=== PATIENT | male | born 1955 | race Caucasian/White ===

== ENCOUNTER → 2017-10-29 | Day surgery (SDC) | payer OTHER ==
[2017-10-22 16:24] VITALS: BMI 33.1
[~2017-10-29] MED LIST: CEFAZOLIN 2 GM/D5W 2 GM/50 ML ML IVPB ONE; oxyCODONE HCL 10 MG SUSTAINED ACTING TABLET ONE; oxyCODONE HCL 10 MG SUSTAINED ACTING TABLET PO STA
--- NOTE | 2017-10-29 07:13 | HP ---
History & Physical Update - History History: No Change - Physical Physical: No Change - Assessment Assessment: No Change - Plan Plan: No Change (Initial H&P located in patient's paper chart. No new complaints or medications. Elective ACDF C5-C7. (pain radiates down into RUE/ fingers))
[2017-10-29 10:54] VITALS: BP 131/91; PULSE 82; TEMP 97.8
== END | disposition home or self-care (01) ==
LOC: FASU 10:03
PROVIDERS: ATTEND Orthopaedic Surgery Orthopaedic Surgery of the Spine
PROC: 0RB30ZZ Excision of Cervical Vertebral Disc, Open Approach (ICD-10-PCS; principal; 2017-10-29)
PROC: 0RG10A0 Fusion of Cervical Vertebral Joint with Interbody Fusion Device, Anterior Approach, Anterior Column, Open Approach (ICD-10-PCS; 2017-10-29)
PROC: 0RG10K0 Fusion of Cervical Vertebral Joint with Nonautologous Tissue Substitute, Anterior Approach, Anterior Column, Open Approach (ICD-10-PCS; 2017-10-29)
DX: M48.02 Spinal stenosis, cervical region (principal); Z53.09 Procedure and treatment not carried out because of other contraindication
CPT/HCPCS: 82962

== ENCOUNTER 2018-06-21 11:17 | Day surgery (SDC) | payer OTHER ==
[2018-06-14 17:54] VITALS: BMI 37.0
[2018-06-21] MEDS: oxyCODONE HCL 10 MG SUSTAINED ACTING TABLET PO ONE ×2 (07:20→12:57)
--- NOTE | 2018-06-21 08:26 | HP ---
History & Physical Update - History History: No Change - Physical Physical: No Change - Assessment Assessment: No Change - Plan Plan: No Change
[~2018-06-21 11:17] MED LIST changes: +BUPIVACAINE HCL/PF (5 MG/ML) 30 ML VIAL IJ ONE; -CEFAZOLIN 2 GM/D5W 2 GM/50 ML ML IVPB ONE; +DEXTROSE 50%-WATER 25 GM/50 ML DISP.SYRIN ONE; +GELATIN SPONGE,ABSORBABLE 1 GM PACKET TP ONE; +LIDOCAINE 1%/EPI 1:100000 (20 ML MULTI DOSE VIAL) IJ ONE; +LIDOCAINE 1%/EPI 1:100000 (20 ML MULTI DOSE VIAL) ONE; +MIDAZOLAM HCL 2 MG/2 ML SINGLE DOSE VIAL ONE; +ONDANSETRON 4 MG/2 ML VIAL IVPUSH PRN; +PROPOFOL 20 ML ONE; +ROCURONIUM BROMIDE 50 MG/5 ML VIAL ONE; +SUCCINYLCHOLINE CHLORIDE 200 MG/10 ML VIAL ONE; +THROMBIN (BOVINE) 5,000 UNIT VIAL TP ONE; +THROMBIN (RECOMBINANT) 5,000 UNIT VIAL TP ONE; +ePHEDrine SULFATE 50 MG/1 ML AMPULE ONE; +fentaNYL CITRATE 250 MCG/5 ML VIAL ONE; -oxyCODONE HCL 10 MG SUSTAINED ACTING TABLET ONE; -oxyCODONE HCL 10 MG SUSTAINED ACTING TABLET PO STA; +oxyCODONE HCL 5 MG TABLET PO PRN
--- NOTE | 2018-06-21 11:17 | OP ---
Operative Note - Note: Operative Date: 06/21/18 Pre-Operative Diagnosis: cervcial spondylolisthesis Operation: Anterior cervical discectomy and fusion of C5-C6 and C6-C7 with neuromonitoring and allograft Surgeon: Easton Vines Audio Visual Manager: Flakita Turner Anesthesiologist/ACCOUNTS RECEIVABLE COORDINATOR: Javier Miles Anesthesia: General Specimens Removed: C5-6 and C6-7 disc Estimated Blood Loss (mls): 20 Fluid Volume Replaced (mls): 1,100 Operative Report Dictated: Yes
[2018-06-21] MEDS ORDERED: ONDANSETRON 4 MG/2 ML VIAL IVPUSH PRN (11:22)
[2018-06-21] MEDS ORDERED: oxyCODONE HCL 5 MG TABLET PO PRN ×3 (11:22)
[2018-06-21] MEDS ORDERED: ACETAMINOPHEN 1000 MG/100 ML VIAL (NON FORMULARY) IVPB ONE ×2 (11:22→11:30)
[2018-06-21] MEDS ORDERED: PROMETHAZINE HCL 25 MG/1 ML VIAL IVPUSH PRN (11:22)
[2018-06-21] MEDS ORDERED: ACETAMINOPHEN 325 MG TABLET (FP) PO SCH (11:30)
[2018-06-21] MEDS ORDERED: SODIUM CHLORIDE 1,000 ML IV SCH (12:00)
--- NOTE | 2018-06-21 12:01 | SURG ---
Surgery Poiser Balance Note Poiser Balance: Flakita Turner PA-C Date of Service: 06/21/18 Diagnosis: cervcial spondylolisthesis Procedure: Anterior cervical discectomy and fusion of C5-C6 and C6-C7 with neuromonitoring and allograft I was present for the entirety of the operative procedure. For further detail, please refer to operative report. Visit type - Case Type Case Type: Scheduled - Emergency Emergency Visit: No - New patient This patient is new to me today: Yes Date on this admission: 06/21/18
[2018-06-21] MEDS ORDERED: oxyCODONE HCL 5 MG TABLET ONE (12:26)
[2018-06-21] MEDS ORDERED: oxyCODONE HCL 5 MG TABLET PO ONE (12:30)
[2018-06-21] MEDS ORDERED: diazePAM 2 MG TABLET ONE (12:55)
[2018-06-21] MEDS: diazePAM 2 MG TABLET PO SCH ×2 (12:58→20:42)
[2018-06-21] MEDS ORDERED: diazePAM 2 MG TABLET PO ONE (13:00)
[2018-06-21] MEDS: oxyCODONE HCL 5 MG TABLET PO PRN ×2 (15:03→20:42)
[2018-06-21] MEDS ORDERED: CEFAZOLIN 1 GM/D5W 1 GRAM/50 ML BAG IVPB SCH (16:00)
[2018-06-21] MEDS: INSULIN SLIDING SCALE (NOVOLOG) 1 VIAL SQ SCH ×2 (16:03→21:28)
[2018-06-21] MEDS: DEXAMETHASONE SOD PHOSPHATE 4 MG/1 ML VIAL IVPB SCH ×2 (16:09→21:21)
[2018-06-21] MEDS: CEFAZOLIN 1 GM/D5W 1 GRAM/50 ML BAG IVPB SCH (16:18)
[2018-06-21] MEDS: ACETAMINOPHEN 325 MG TABLET (FP) PO SCH (17:56)
--- NOTE | 2018-06-21 20:56 | OP ---
DATE OF OPERATION: 06/21/2018 PREOPERATIVE DIAGNOSIS: Cervical stenosis C5-6, C6-7. POSTOPERATIVE DIAGNOSIS: Cervical stenosis C5-6, C6-7. PROCEDURE PERFORMED: Anterior cervical diskectomy and fusion C5-6, anterior cervical diskectomy and fusion C6-7, placement of instrumentation C5-7. SURGEON: Easton Vines M.D. THERAPY SITE COORDINATOR: Shabana Rachel ESTIMATED BLOOD LOSS: 50 mL INTRAVENOUS FLUIDS: Per anesthesia. ANESTHESIA: Spinal/SCP block. COMPLICATIONS: There were none. DISPOSITION: Patient brought to the PACU in stable condition. INDICATION FOR SURGERY: The patient is a 62-year-old gentleman who has been suffering from pain from his neck down his arm for many years now subsequent to an accident. X-rays and MRI were completed, which noted that he has cervical stenosis at C5-6 and C6-7. He had gone through an exhaustive course of treatment for this which included medications, physical therapy, as well as injections. Unfortunately, the pain continued to persist in spite of all this. At this point, risks, benefits, and alternatives were discussed and the patient consented to surgery. OPERATIVE NOTE: Patient is brought to the operating room by anesthesia staff. After appropriate patient identification is performed, general anesthesia was given. SCP block was given. Patient was placed supine on the OR bed with his arms tucked in at the side. All areas of bony prominence were well padded at this time. A shoulder roll was placed underneath his neck to extend his neck to the point that he could tolerate in the preoperative holding area. A needle was placed onto his neck to marnie off the C5-6 level, and x-rays was taken to confirm this is correct. [place] were removed, and 10 mL of lidocaine with epinephrine was injected into his neck at this time. His neck was prepped and draped in a sterile manner. At this point timeout was completed. An incision was made on the left side of his neck. Dissection was carried down to the platysma. The platysma was cut in line of the skin incision. Next interval between the sternocleidomastoid muscle as well as strap muscles were developed. Next the interval between the carotid sheath as well as tracheal esophagus was developed. A needle was placed into the C5-6 disk. An x-ray was taken to confirm this was correct. The needle was removed, and the muscle elevated off. Retractor blades were placed, and a Tavarez pin was placed in the body of C5 and C7. A knife was used to incise the disk and the disk was distracted. At this point using a series of pituitaries, Kerrisons and curets, a diskectomy was completed to the C5-6 and C6-7 levels, and plates were decorticated. Cages was bone graft were placed in. A screw was placed into the body at C5, C6, and C7. Tavarez pins were removed. AP and lateral x-rays confirmed the instrumentation being in good position. Final tightening was performed. The platysma was closed with 2-0 Vicryl suture. Skin was closed with 3-0 Monocryl suture. Dermabond was applied. Steri-Strips were applied. Sterile dressing was applied. Patient was placed supine on OR bed, and brought to the PACU in stable condition. Tiffanie [id number] MTDD
[2018-06-21] MEDS: oxyCODONE HCL 10 MG SUSTAINED ACTING TABLET PO SCH (21:20)
[2018-06-21] MEDS ORDERED: ATORVASTATIN CA 20 MG TABLET (FP) PO SCH (22:00)
[2018-06-22] MEDS: ACETAMINOPHEN 325 MG TABLET (FP) PO SCH ×3 (00:04→12:00)
[2018-06-22] MEDS: CEFAZOLIN 1 GM/D5W 1 GRAM/50 ML BAG IVPB SCH (00:37)
[2018-06-22] MEDS: DEXAMETHASONE SOD PHOSPHATE 4 MG/1 ML VIAL IVPB SCH (03:03)
[2018-06-22 05:40] VITALS: BP 132/72; PULSE 77; TEMP 97.8
[2018-06-22] MEDS: diazePAM 2 MG TABLET PO SCH (06:00)
[2018-06-22] MEDS: INSULIN SLIDING SCALE (NOVOLOG) 1 VIAL SQ SCH ×2 (06:44→12:00)
[2018-06-22] MEDS ORDERED: metFORMIN HCL 500 MG TABLET (FP) PO SCH (07:45)
--- NOTE | 2018-06-22 08:55 | DS ---
Physical Exam: SUBJECTIVE: Patient seen and examined this am. No complaints of CP, SOB. No difficulty swallowing, tolerated clears. Voiding on his own. Right hand with slight improvement in his hand tingling. Pain relief overnight with oxycodone x1. He doesn't like to take tylenol. OBJECTIVE: Vital Signs Temperature 97.8 F 06/22/18 05:39 Pulse Rate 77 06/22/18 05:39 Respiratory Rate 19 06/22/18 05:39 Blood Pressure 132/72 06/22/18 05:39 O2 Sat by Pulse Oximetry (%) 97 06/22/18 08:26 PHYSICAL EXAM GENERAL: The patient is awake, alert, and fully oriented, in no acute distress. NECK: Soft collar in place, removed this am and no evidence of ecchymosis, masses or bleeding. Incision c/d/i. Neck supple and soft. Collar replaced. No stridor. LUNGS: Breath sounds equal, clear to auscultation bilaterally, no wheezes, no crackles, no accessory muscle use. HEART: Regular rate and rhythm. EXTREMITIES: Upper: director airport operations strength equal b/l. Lower: dorsi/plantar flexion 5/5 bilaterally. NEUROLOGICAL: . Normal speech, gait not observed. PSYCH: Normal mood, normal affect. LABS CBC,CMP POC Glucometer 262 UNITS (80-120) 06/22/18 06:36 HOSPITAL COURSE: The patient was admitted to the Med-Surg Unit after an elective repair of their cervical stenosis. Now, s/p cervical C5-6 and C6-7 ACDF. The day of surgery, the patient ambulated the hallways with assistance. Narcotic and non-narcotic pain management control was achieved with an oral and IV approach. An xray was obtained and confirmed hardware placement at C5-6 and C6-7, no fractures or dislocations. Preethi-operative IV ABX were administered. DVT prophylaxis was achieved with SCDs and early ambulation. The patient ambulated with Physical Therapy and no services were recommended upon discharge. Narcotic scripts and or muscle relaxants were checked with [place] [employer] prior to escibe. The discharge instructions and an oral pain management plan were reviewed with the patient. All questions answered. Above plan discussed with Dr. Vines and agreed. Visit type - Case Type Case Type: Scheduled - Emergency Emergency Visit: No - New patient This patient is new to me today: Yes Date on this admission: 06/22/18
[2018-06-22] MEDS: oxyCODONE HCL 10 MG SUSTAINED ACTING TABLET PO SCH (09:06)
[2018-06-22] MEDS ORDERED: PATIENT'S OWN MEDICATION (NON-FORMULARY) (Metformin Hcl [Glucophage] 1,000 MG) PO SCH (10:00)
[2018-06-22] MEDS ORDERED: amLODIPine BESYLATE 10 MG TABLET (FP) PO SCH (10:00)
[2018-06-22] MEDS ORDERED: PATIENT'S OWN MEDICATION (NON-FORMULARY) (Simvastatin [Simvastatin] 40 MG) PO SCH (10:00)
[2018-06-22] MEDS ORDERED: FUROSEMIDE 40 MG TABLET (FP) PO SCH (10:00)
--- NOTE | 2018-06-23 15:39 | PATH ---
Surgical Pathology Report Patient Name: YAYA BEARD Med. Rec. #: [id number] /Age/Gender: 1955 (Age: 62) / M Account: [id number] [facility] Taken: 06/21/2018 Received: 06/21/2018 Reported: 06/23/2018 Physicians: Easton Vines M.D. Specimen(s) Received DISC C5-7 Clinical History Cervical stenosis Final Diagnosis DISC C5-7, ANTERIOR CERVICAL DISCECTOMY AND FUSION: BENIGN INTERVERTEBRAL DISC TISSUE. Electronically Signed Aleisha Mejia M.D. Gross Description Received in formalin labeled "disc C5-7," is a 2.2 x 1.8 x 0.3 cm aggregate of greenwood fragments of fibrocartilaginous tissue. The specimen is submitted in toto in one cassette. /06/22/201806/22/2018
== END 2018-06-22 11:30 | disposition home or self-care (01) ==
LOC: FASUSAT 11:17 → FM/S 11:17 → FASUSAT 06-22 11:30
PROVIDERS: ATTEND Orthopaedic Surgery Orthopaedic Surgery of the Spine
PROC: 0RG10A0 Fusion of Cervical Vertebral Joint with Interbody Fusion Device, Anterior Approach, Anterior Column, Open Approach (ICD-10-PCS; 2018-06-21)
PROC: 0RG10K0 Fusion of Cervical Vertebral Joint with Nonautologous Tissue Substitute, Anterior Approach, Anterior Column, Open Approach (ICD-10-PCS; 2018-06-21)
PROC: 0RB30ZZ Excision of Cervical Vertebral Disc, Open Approach (ICD-10-PCS; principal; 2018-06-21 09:25)
DX: M48.02 Spinal stenosis, cervical region (principal)
CPT/HCPCS: 22551; 22552; 22845; 22853; C1889; 72050-TC-FY; 76000-TC-FY; 82962; 88304-TC; 94760; 97116-GP; 97161-GP; J0131